=== PATIENT | female | born 2000 | race American Indian/Alaskan Native ===

== ENCOUNTER 2020-07-21 02:01 | Inpatient (IN) | payer OTHER ==
--- NOTE | 2020-07-21 07:17 | PR ---
[facility] [address] [place], [place] [address] Signed PP Progress Notes Datetime Report Generated by CPSigrid: 07/21/2020 07:17 SUBJECTIVE: [id number] Pain: Within Normal Limits Nausea/Vomiting: Denies Flatus: No Bowel Movement: No Vital Signs: [id number] Vital Signs: Reviewed Cardiovascular: Normal Respiratory: Normal Abdomen/Uterus: Normal Lochia: Normal Extremities: Normal Exam Comments: Normal color, fundus firm, bleeding considerably slower. Labs reviewed, stable. Repeat hemogram at noon. IMPRESSION/PLAN/PROCEDURES: [id number] Impression: Normal Progression Plan: Continue Present Management Progress Notes: PPD#0 s/p at 0308 this morning. PPH = 1400mL QBL Received: additional 30 units pitocin, TXA 1g IV, methergine 0.2mg IM, cytotec 1000mcg [facility] Hgb/ coag labs stable, recheck hemogram at noon today Signing Physician: Genevieve Albright DO Copies: ~ *Electronically Signed* 07/21/20 0717 GENEVIEVE ALBRIGHT DO PATIENT NAME: DAVID NASH PROGRESS NOTE DATE OF : [birth year] PHYSICIAN: GENEVIEVE ALBRIGHT DO RPT #: [id number] REPORT IS CONFIDENTIAL AND NOT TO BE RELEASED WITHOUT AUTHORIZATION
--- NOTE | 2020-07-21 13:14 | NUR ---
RT COLLECTED COVID 19 SWAB WITH NO COMPLICATIONS. RT USED THE CEPHEID RAPID TEST THROUGH [facility] PER DR REQUEST AT THIS TIME.
--- NOTE | 2020-07-22 12:21 | PR ---
[facility] [address] [place], [place] [address] Signed PP Progress Notes Datetime Report Generated by CPN: 07/22/2020 12:21 SUBJECTIVE: [id number] Pain: Within Normal Limits Nausea/Vomiting: Denies Flatus: Yes Bowel Movement: Yes Vital Signs: [id number] Vital Signs: Reviewed Notable Details: intermittent mild tachycardia Cardiovascular: Normal Respiratory: Normal Abdomen/Uterus: Normal Lochia: Normal Breasts: Normal CVA Tenderness: Normal Extremities: Normal Exam Comments: fundus firm below umbilicus trace lower extremity edema IMPRESSION/PLAN/PROCEDURES: [id number] Impression: Normal Progression Plan: Continue Present Management Procedures: None Progress Notes: PPD#1 s/p complicated by PPH 1400mL Progressing well Mild tachycardia intermittent, continue to monitor Start oral iron Anticipate DC to home tomorrow Signing Physician: Genevieve Albright DO Copies: ~ *Electronically Signed* 07/22/20 1221 GENEVIEVE ALBRIGHT DO PATIENT NAME: DAVID NASH PROGRESS NOTE DATE OF : 98 PHYSICIAN: GENEVIEVE ALBRIGHT DO [facility] #: [id number] REPORT IS CONFIDENTIAL AND NOT TO BE RELEASED WITHOUT AUTHORIZATION
--- NOTE | 2020-07-23 08:12 | PR ---
[facility] [address] [place], [place] [address] Signed PP Progress Notes Datetime Report Generated by CPN: 07/23/2020 08:12 SUBJECTIVE: [id number] Pain: Within Normal Limits Nausea/Vomiting: Denies Flatus: Yes Bowel Movement: Yes Vital Signs: [id number] Vital Signs: Reviewed; Within Normal Limits Notable Details: intermittent mild tachycardia Cardiovascular: Normal Respiratory: Normal Abdomen/Uterus: Normal Lochia: Normal Breasts: Normal CVA Tenderness: Normal Extremities: Normal Progress: Normal Exam Comments: Fundus firm below umbilicus Lochia light Trace bilateral lower extremity edema IMPRESSION/PLAN/PROCEDURES: [id number] Impression: Normal Progression Plan: Continue Present Management; Discharge Procedures: None Progress Notes: PPD#2 s/p complicated by PPH of 1400mL doing well , asymptomatic desires DC to home today DC home on iron and ibuprofen Follow-up in 2 weeks with telemedicine appt, 6 weeks for in-person appointment (sooner if needed) Signing Physician: Genevieve Albright DO Copies: ~ *Electronically Signed* 07/23/20811 GENEVIEVE ALBRIGHT DO PATIENT NAME: DAVID NASH PROGRESS NOTE DATE OF : 98 PHYSICIAN: GENEVIEVE ALBRIGHT DO RPT #: [id number] REPORT IS CONFIDENTIAL AND NOT TO BE RELEASED WITHOUT AUTHORIZATION
== END 2020-07-23 13:12 | disposition home or self-care (01) | DRG 806 ==
LOC: FBCO 02:01 → FBC 02:21
PROVIDERS: ADMIT Obstetrics & Gynecology; ATTEND Obstetrics & Gynecology
PROC: 10E0XZZ Delivery of Products of Conception, External Approach (ICD-10-PCS; principal; 2020-07-21)
PROC: 0KQM0ZZ Repair Perineum Muscle, Open Approach (ICD-10-PCS; 2020-07-21)
DX: O42.92 Full-term premature rupture of membranes, unspecified as to length of time between rupture and onset of labor (principal); O72.1 Other immediate postpartum hemorrhage; Z37.0 Single live birth; O99.284 Endocrine, nutritional and metabolic diseases complicating childbirth; E55.9 Vitamin D deficiency, unspecified; Z20.822 Contact with and (suspected) exposure to COVID-19; O99.893 Other specified diseases and conditions complicating puerperium; R00.0 Tachycardia, unspecified; Z3A.37 37 weeks gestation of pregnancy; O76 Abnormality in fetal heart rate and rhythm complicating labor and delivery; O70.1 Second degree perineal laceration during delivery; Z86.19 Personal history of other infectious and parasitic diseases; Z86.16 Personal history of COVID-19
CPT/HCPCS: 36415; 85027; 85384; 85610; 85730; C9803; J1170; J2210; J2590; J7120; U0003

== ENCOUNTER 2024-10-03 08:29 | Emergency (ER) | payer OTHER ==
[~2024-10-03] VITALS: Ht 182.9 cm; Wt 104.3 kg
[2024-10-03] MEDS ORDERED: LIDOCAINE/RACEPINEP/TETRACAINE 3 ML SYR TOP ONE (09:00)
[2024-10-03] MEDS ORDERED: AMOX TR-K CLV1 EAC1 PO (09:46)
[2024-10-03] MEDS ORDERED: AMOXICILLIN/CLAVULANATE K 875 MG HOME.PACK PO ONE (10:00)
[2024-10-03] MEDS ORDERED: AMOXICILLIN/CLAVULANATE K 875 MG TAB PO ONE (10:00)
[2024-10-03 10:04] VITALS: BP 119/72
== END 2024-10-03 10:05 | disposition home or self-care (01) ==
LOC: ED 08:29
DX: S01.551A Open bite of lip, initial encounter (principal); S01.451A Open bite of right cheek and temporomandibular area, initial encounter; S01.552A Open bite of oral cavity, initial encounter; W54.0XXA Bitten by dog, initial encounter
CPT/HCPCS: 12011; 40830; 90471; 99283-25

== ENCOUNTER 2024-10-10 09:41 | Emergency (ER) | payer OTHER, BC ==
[~2024-10-10] VITALS: Ht 182.9 cm; Wt 105.0 kg
[~2024-10-10 09:41] MED LIST: AMOX TR-K CLV1 EAC1 PO
--- OUTSIDE RECORDS SUMMARY | 2024-10-10 09:48 | XMS ---
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 E.D. VISIT COUNT (12 MO.) 2 [facility] TOTAL 2 NOTE: Visits indicate total known visits. ED/UCC VISIT TRACKING (12 MO.) 10/10/2024 09:41 [facility] TYPE: Emergency COMPLAINT: - FACE PAIN 10/03/2024 08:30 [facility] TYPE: Emergency COMPLAINT: - BITE INPATIENT VISIT TRACKING (12 MO.) No inpatient visits to display in this time frame [email or web address]
[2024-10-10 10:46] VITALS: BP 112/70
== END 2024-10-10 10:43 | disposition home or self-care (01) ==
LOC: ED 09:41
DX: T21.22XA Burn of second degree of abdominal wall, initial encounter (principal); L90.5 Scar conditions and fibrosis of skin; X08.8XXA Exposure to other specified smoke, fire and flames, initial encounter; Z48.02 Encounter for removal of sutures
CPT/HCPCS: 99283